=== PATIENT | male | born 1990 | race African-American/Black ===

== ENCOUNTER 2022-08-20 12:51 | Emergency (ER) | payer OTHER ==
[~2022-08-20] VITALS: Ht 180.3 cm; Wt 91.0 kg
[2022-08-20] MEDS ORDERED: CEPH500C PO (16:39)
[2022-08-20 16:57] VITALS: BP 130/85; TEMP 97.5; O2SAT 100
== END 2022-08-20 16:59 | disposition home or self-care (01) ==
LOC: M ED 12:51
DX: S91.201A Unspecified open wound of right great toe with damage to nail, initial encounter (principal); W22.8XXA Striking against or struck by other objects, initial encounter; Y92.830 Public park as the place of occurrence of the external cause; Y93.89 Activity, other specified; Y99.8 Other external cause status